=== PATIENT | male | born 1950 | race Caucasian/White ===

== ENCOUNTER 2024-04-25 10:42 | Outpatient (CLI) | payer MEDICARE, SELFPAY ==
[2024-04-25 11:03] LABS: Basophils Absolute Auto 0.06 K/mm3 (0.00-0.10); Basophils Percent Auto 0.8 % (0.0-1.0); Eosinophils Absolute Auto 0.24 K/mm3 (0.02-0.50); Eosinophils Percent Auto 3.3 % (1.0-6.0); Hematocrit 41.6 % (37.0-46.0); Hemoglobin 13.6 g/dL (12.4-15.3); Immature Granulocyte Absolute 0.02 K/mm3 (0.00-0.00); Immature Granulocyte Percent A 0.3 % (0.0-0.0); Lymphocytes Absolute Auto 1.14 K/mm3 (1.10-4.50); Lymphocytes Percent Auto 15.8 % (18.0-42.0); Mean Corpuscular HGB Conc 32.7 g/dL (32-36); Mean Corpuscular Hemoglobin 28.9 pg (27.0-31.0); Mean Corpuscular Volume 88.5 fL (78.0-102.0); Mean Platelet Volume 9.6 fl (8.7-11.0); Monocytes Absolute Auto 0.77 K/mm3 (0.10-0.90); Monocytes Percent Auto 10.7 % (2.0-11.0); Neutrophils Absolute Auto 4.97 K/mm3 (1.70-7.20); Neutrophils Percent Auto 69.1 % (50.0-70.0); Platelet Count Result 252 K/mm3 (150-420); Red Cell Distribution Width 13.1 % (11.6-14.4); White Blood Count 7.2 K/mm3 (4.8-10.8)
[2024-04-25 11:25] LABS: Alanine Aminotransferase 35 U/L (16-63); Albumin Level 3.9 g/dL (3.4-5.0); Alkaline Phosphatase 104 U/L (46-116); Ammonia 75 umol/L (11-32); Anion Gap 11 mmol/L (4-12); Aspartate Amino Transferase 21 U/L (15-37); Bilirubin,Total 0.4 mg/dL (0.00-1.00); Blood Urea Nitrogen 42 mg/dL (7-18); Carbon Dioxide 28 mmol/L (21-32); Chloride 102 mmol/L (98-108); Estimated Glomerular Filt Rate > 60; Glucose 105 mg/dL (70-99); Osmolality Calculated 302 mOsm/kg (285-295); Potassium 3.4 mmol/L (3.5-5.1); Sodium 141 mmol/L (136-145); Total Protein 7.8 g/dL (6.4-8.2)
== END 2024-04-25 10:43 | disposition home or self-care (01) ==
LOC: CHSLAB 10:44
PROVIDERS: PCP Family Medicine; Visit Provider Family Medicine
DX: K74.60 Unspecified cirrhosis of liver (principal)
CPT/HCPCS: 36415; 80053; 82140; 85025

== ENCOUNTER 2024-05-01 08:54 | Outpatient (CLI) | payer MEDICARE, SELFPAY ==
--- NOTE | ~2024-05-01 | MR_ITS ---
EXAMINATION: MR brain IAC wo con DATE: 05/01/2024 09:50 INDICATION: Headache, unspecified. TECHNIQUE: Magnetic resonance imaging (MRI) of the brain, brainstem, and internal auditory canals was performed without intravenous contrast. COMPARISON: None. FINDINGS: There are scattered areas of nonspecific increased T2-weighted signal intensity in the cere bral white matter and saloni. There is no intracranial hemorrhage, acute infarction, or abnormal intrac ranial mass lesion. The ventricles are normal in size. The internal auditory canals, inner ears, tymp anic cavities, and mastoid air cells are normal. The orbits are normal. There is mucosal thickening i n the paranasal sinuses. IMPRESSION: 1. Extensive nonspecific cerebral white matter disease and pontine disease, which likely represents c hronic small vessel ischemic disease. Reviewed, dictated and finalized at location A. IMPRESSION: 1. Extensive nonspecific cerebral white matter disease and pontine disease, whi ch likely represents chronic small vessel ischemic disease.
== END 2024-05-01 08:55 | disposition home or self-care (01) ==
LOC: CHSIMG 08:57
PROVIDERS: PCP Family Medicine; Visit Provider Family Medicine
DX: G89.29 Other chronic pain (principal); R51.9 Headache, unspecified; R90.82 White matter disease, unspecified
CPT/HCPCS: 70551

== ENCOUNTER 2024-06-18 15:36 | Outpatient (CLI) | payer MEDICARE, SELFPAY ==
--- NOTE | ~2024-06-18 | XR_ITS ---
[id number] 06/18/2024 16:09 Indication: Right knee pain Procedure: 2 views right knee Comparison: No prior studies for comparison. Findings: There is near complete loss of joint space in the medial compartment. There is a moderate j oint effusion. No acute fracture or traumatic malalignment. There is mild patellofemoral compartment osteoarthritis. Impression: 1: Advanced osteoarthritis of the right knee, most severe in the medial compartment. Reviewed, dictated and finalized at location B. Impression: 1: Advanced osteoarthritis of the right knee, most severe in the medial compart ment.
[2024-06-18 16:17] LABS: Alanine Aminotransferase 161 U/L (16-63); Albumin Level 2.6 g/dL (3.4-5.0); Alkaline Phosphatase 189 U/L (46-116); Anion Gap 8 mmol/L (4-12); Aspartate Amino Transferase 67 U/L (15-37); Blood Urea Nitrogen 32 mg/dL (7-18); Calcium 9.1 mg/dL (8.5-10.1); Carbon Dioxide 30 mmol/L (21-32); Chloride 96 mmol/L (98-108); Estimated Glomerular Filt Rate 33; Glucose 118 mg/dL (70-99); Osmolality Calculated 285 mOsm/kg (285-295); Sodium 134 mmol/L (136-145); Total Protein 6.8 g/dL (6.4-8.2); Uric Acid 3.8 mg/dL (3.5-7.2)
[2024-06-18 16:18] LABS: Ammonia < 10 umol/L (11-32)
== END 2024-06-18 15:37 | disposition home or self-care (01) ==
LOC: CHSLAB 15:40
PROVIDERS: PCP Nurse Practitioner Family; Visit Provider Nurse Practitioner Family
DX: M25.461 Effusion, right knee (principal); M25.561 Pain in right knee; M17.11 Unilateral primary osteoarthritis, right knee
CPT/HCPCS: 36415; 73560; 80053; 82140; 84550

== ENCOUNTER 2024-06-19 08:38 | Outpatient (CLI) | payer MEDICARE, SELFPAY ==
--- NOTE | ~2024-06-19 | US_ITS ---
Anteriorly ULTRASOUND Ordering provider: Edil Rocha APRN History: . M25.461 - Effusion, right knee . Comparison: None. FINDINGS/impression: Fluid is seen around the knee most likely in the suprapatellar bursa.. Reviewed, dictated and finalized at location A.
== END 2024-06-19 08:39 | disposition home or self-care (01) ==
LOC: CHSIMG 08:42
PROVIDERS: PCP Family Medicine; Visit Provider Nurse Practitioner Family
DX: M25.461 Effusion, right knee (principal)
CPT/HCPCS: 76882

== ENCOUNTER 2024-06-27 12:58 | Outpatient (NON) | payer MEDICARE, SELFPAY ==
[2024-06-27 13:53] LABS: Appearance Synovial Fluid Cloudy (Clear); Color Synovial Fluid Yellow (Colorless); Source Synovial Fluid Rt Knee Syn Fluid
[2024-06-27 13:54] LABS: Lymphocytes Synovial Fluid 3 %; Monocytes Synovial Fluid 1 %; Neutrophils Synovial Fluid 96 % (0-25); Nucleated Cell Synovial Fluid 48917 /uL (0-200); RBC Synovial Fluid 4000 /uL (0-0)
== END 2024-06-27 12:59 | disposition home or self-care (01) ==
PROVIDERS: PCP Family Medicine; Visit Provider Family Medicine
DX: M25.461 Effusion, right knee (principal)
CPT/HCPCS: 82365; 89051; 89060

== ENCOUNTER 2024-07-16 13:38 | Outpatient (CLI) | payer MEDICARE, SELFPAY ==
--- NOTE | ~2024-07-16 | US_ITS ---
RIGHT LOWER EXTREMITY VENOUS ULTRASOUND Ordering provider: Lake Bhatti DO History: . I82.409 - Acute embolism and thrombosis of unspecified de... . Comparison: None. FINDINGS: --COMMON FEMORAL: Patent and free of thrombus. Normal compressibility, phasic flow and augmentation. --PROXIMAL SUPERFICIAL FEMORAL: Patent and free of thrombus. Normal compressibility, phasic flow and augmentation. --DISTAL SUPERFICIAL FEMORAL: Patent and free of thrombus. Normal compressibility, phasic flow and au gmentation. --POPLITEAL: Patent and free of thrombus. Normal compressibility, phasic flow and augmentation. --POSTERIOR TIBIAL: Patent and free of thrombus. Normal compressibility, phasic flow and augmentation . Motley's cyst is seen in the popliteal fossa measuring 3.4 x 4.8 x 1 cm. IMPRESSION: Negative right lower extremity venous US. No deep vein thrombosis. Motley's cyst in the popliteal fossa. Reviewed, dictated and finalized at location A. 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
== END 2024-07-16 13:39 | disposition home or self-care (01) ==
LOC: CHSIMG 13:39
PROVIDERS: PCP Family Medicine; Visit Provider Family Medicine
DX: I82.401 Acute embolism and thrombosis of unspecified deep veins of right lower extremity (principal); M71.21 Synovial cyst of popliteal space [Baker], right knee
CPT/HCPCS: 93971

== ENCOUNTER 2025-05-15 11:15 | Outpatient (CLI) | payer OTHER, MEDICARE, SELFPAY ==
--- OUTSIDE RECORDS SUMMARY | 2025-05-15 11:36 | XMS_ITS | Clinical Summary ---
Author Organization [facility] Address [address] [place] [address] Care Team Providers Care Pet Ambassador Name Role Phone Lake Bhatit DO Primary Care Provider [phone] Allergies Active Allergy Reactions Criticality Noted Date Comments Sulfa Antibiotics Unknown 06/24/2024 Medications LORazepam (ATIVAN) 0.5 MG tablet Take 1 tablet (0.5 mg total) by mouth daily as needed. 4 Active morphine CR (MS CONTIN) 30 MG tablet Take 1 tablet (30 mg total) by mouth 2 (two) times daily. 4 Active oxyCODONE immediate release (ROXICODONE) 5 MG immediate release tablet Take 1 tablet (5 mg total) by mouth every 4 (four) hours as needed. 4 Active allopurinol (ZYLOPRIM) 300 MG tablet Take 1 tablet (300 mg total) by mouth daily. Active fluvoxaMINE (LUVOX) 100 MG tablet Take 1.5 tablets (150 mg total) by mouth 2 (two) times daily. Active entecavir (BARACLUDE) 0.5 MG tablet Take 1 tablet (0.5 mg total) by mouth daily. ON an EMPTY STOMACH. Active mometasone (ELOCON) 0.1 % ointment Apply topically daily. Active amLODIPine (NORVASC) 10 MG tablet Take 1 tablet (10 mg total) by mouth daily. Active benazepril (LOTENSIN) 20 MG tablet Take 2 tablets (40 mg total) by mouth daily. Active clobetasol (TEMOVATE) 0.05 % external solution Apply topically 2 (two) times daily. Active QUEtiapine XR (SEROQUEL XR) 50 MG 24 hr tablet Take 1 tablet (50 mg total) by mouth daily. Active lactulose (CHRONULAC) 10 GM/15ML solution Take 30 mLs (20 g total) by mouth daily. Active Family History Medical History Relation Comments Diabetes Father Heart Disease Father Hypertension Father Hypertension Mother Relation Status Comments Father Mother Social History Tobacco Use Types Packs/Day Years Used Date Smoking Tobacco: Never Smokeless Tobacco: Never Tobacco Cessation:Counseling Given: Not Answered Alcohol Use Standard Drinks/Week Comments Never 0 (1 standard drink = 0.6 oz pur e alcohol) Sex and Gender Information Value Date Recorded Sex Assigned at Not on file Legal Sex Male 10:23 AM CDT Gender Identity Not on file Sexual Orientation Not on file Last Filed Vital Signs Vital Sign Reading Time Taken Comments Blood Pressure 118/74 06/24/2024 11:40 AM CDT Pulse 68 06/24/2024 11:40 AM CDT Temperature 36.6 C (97.8 F) 06/24/2024 10:39 AM CDT Respiratory Rate 16 06/24/2024 11:40 AM CDT Oxygen Saturation 100% 06/24/2024 11:40 AM CDT Inhaled Oxygen Concentration - - Weight 76.2 kg (168 lb) 06/24/2024 10:39 AM CDT Height 170.2 cm (5' 7) 06/24/2024 10:39 AM CDT Body Mass Index 26.31 06/24/2024 10:39 AM CDT Plan of Treatment Health Maintenance Due Date Last Done Comments Colorectal Cancer Screening Colonoscopy (10 Years) 1950 Hepatitis C 1970 Zoster Vaccines (1 of 2) 2002 Pneumococcal Vaccine: 50+ Ye ars (2 of 2 - PCV) 10/14/2016 10/14/2015 Annual Medicare Wellness Visit 2017 COVID-19 Vaccine ( - 2023-2 5 season) 2024 DTaP, Tdap and Td Vaccines ( 2 - Td or Tdap) 08/18/2026 08/18/2016 RSV Immunization or 60+ Years (1 - 1-dose 75+ series) 2027 Meningococcal B Vaccine Aged Out No l onger eligible based on patient's age to complete this topic Meningococcal Vaccine Aged Out No regina neelima eligible based on patient's age to complete this topic RSV Immunizations Under 20 Months Aged Out No longer eligible based on patient's age to complete this topic Insurance MEDICARE [facility] Care Teams Pet Ambassador Relationship Specialty Start Date End Date Lake Bhatti DO [address] [place] [address] PCP - General FAMILY PRACTICE 06/24/24
[2025-05-15 11:51] LABS: Ammonia < 9 umol/L (9-30)
[2025-05-15 11:53] LABS: Hemoglobin A1C 5.5 % (<5.7)
[2025-05-15 12:02] LABS: Iron 33 ug/dL (49-181)
[2025-05-15 12:12] LABS: Percent Iron Saturation 8 % (20-50)
[2025-05-15 12:35] LABS: Thyroid Stimulating Hormone Reflex 6.330 uIU/mL (0.465-4.68)
[2025-05-15 12:59] LABS: Sodium 141 mmol/L (137-145)
[2025-05-15 13:00] LABS: Alanine Aminotransferase 22 U/L (6-50); Albumin Level 4.3 g/dL (3.5-5.1); Anion Gap 8 mmol/L (4-12); Aspartate Amino Transferase 34 U/L (17-59); Bilirubin,Total 0.7 mg/dL (0.2-1.3); Blood Urea Nitrogen 19 mg/dL (9-20); Calcium 9.8 mg/dL (8.4-10.2); Carbon Dioxide 27 mmol/L (22-30); Chloride 106 mmol/L (98-107); Estimated Glomerular Filt Rate 56; Ferritin 5.70 ng/mL (11.1-264); Glucose 102 mg/dL (65-110); Osmolality Calculated 294 mOsm/kg (285-295); Potassium 4.8 mmol/L (3.4-5.0); Total Protein 7.1 g/dL (6.3-8.2)
[2025-05-15 13:01] LABS: Alkaline Phosphatase 57 U/L (38-126); Free T4 Free Thyroxine Reflex 1.03 ng/dL (0.78-2.19); Vitamin B12 922.0 pg/mL (239-931)
[2025-05-16 16:59] LABS: Hematocrit 29.5 % (37.0-46.0); Hemoglobin 7.7 g/dL (12.4-15.3); Immature Granulocyte Percent A 0.3 % (0.0-0.0); Lymphocytes Absolute Auto 1.38 K/mm3 (1.10-4.50); Mean Corpuscular HGB Conc 26.1 g/dL (32-36); Mean Corpuscular Hemoglobin 19.6 pg (27.0-31.0); Mean Corpuscular Volume 75.3 fL (78.0-102.0); Nucleated Red Blood Cells Absolute Auto 0.03 K/mm3 (0.00-0.00); Nucleated Red Blood Cells Perc 0.5 % (0-0.0); Platelet Count Result 286 K/mm3 (150-420); Red Blood Count 3.92 M/mm3 (4.70-6.10); White Blood Count 6.7 K/mm3 (4.8-10.8)
== END 2025-05-15 11:16 | disposition home or self-care (01) ==
LOC: CHSLAB 11:17
PROVIDERS: PCP Family Medicine; Visit Provider Family Medicine
DX: D50.9 Iron deficiency anemia, unspecified (principal); R53.83 Other fatigue; E03.9 Hypothyroidism, unspecified; D64.9 Anemia, unspecified; E53.8 Deficiency of other specified B group vitamins; K74.60 Unspecified cirrhosis of liver; E11.9 Type 2 diabetes mellitus without complications
CPT/HCPCS: 36415; 80053; 82140; 82607; 82728; 82746; 83036; 83540; 83550; 84439; 84443; 85025

== ENCOUNTER 2025-08-27 14:53 | Outpatient (CLI) | payer MEDICARE, SELFPAY ==
--- NOTE | ~2025-08-27 | XR_ITS ---
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 Technique: 2 views obtained. Findings: The lungs are clear, no effusion. No pneumothorax. Heart is normal size. Mediastinal and hilar contours are within normal limits. Bony thorax no acute abnormality. Impression: No acute cardiopulmonary abnormality. Reviewed, dictated and finalized at location P. 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
[2025-08-27 15:15] LABS: Hematocrit 44.7 % (37.0-46.0); Hemoglobin 14.1 g/dL (12.4-15.3); Immature Granulocyte Percent A 0.3 % (0.0-0.0); Lymphocytes Absolute Auto 1.71 K/mm3 (1.10-4.50); Mean Corpuscular HGB Conc 31.5 g/dL (32-36); Mean Corpuscular Hemoglobin 26.4 pg (27.0-31.0); Mean Corpuscular Volume 83.7 fL (78.0-102.0); Nucleated Red Blood Cells Absolute Auto 0.00 K/mm3 (0.00-0.00); Nucleated Red Blood Cells Perc 0.0 % (0-0.0); Platelet Count Result 272 K/mm3 (150-420); Red Blood Count 5.34 M/mm3 (4.70-6.10); White Blood Count 9.4 K/mm3 (4.8-10.8)
[2025-08-27 15:33] LABS: Alanine Aminotransferase 37 U/L (6-50); Albumin Level 4.7 g/dL (3.5-5.1); Alkaline Phosphatase 85 U/L (38-126); Anion Gap 11 mmol/L (4-12); Aspartate Amino Transferase 40 U/L (17-59); Bilirubin,Total 0.5 mg/dL (0.2-1.3); Blood Urea Nitrogen 12 mg/dL (9-20); Calcium 9.6 mg/dL (8.4-10.2); Carbon Dioxide 24 mmol/L (22-30); Chloride 108 mmol/L (98-107); Estimated Glomerular Filt Rate > 60; Glucose 106 mg/dL (65-110); Osmolality Calculated 295 mOsm/kg (285-295); Potassium 3.7 mmol/L (3.4-5.0); Sodium 143 mmol/L (137-145); Total Protein 7.6 g/dL (6.3-8.2); Uric Acid 3.7 mg/dL (3.5-8.5)
[2025-08-27 15:42] LABS: NT Pro B Type Natriuretic Pept 259 pg/mL (19.9-100)
== END 2025-08-27 14:54 | disposition home or self-care (01) ==
PROVIDERS: PCP Family Medicine; Visit Provider Family Medicine
DX: M10.9 Gout, unspecified (principal); K74.60 Unspecified cirrhosis of liver; R06.09 Other forms of dyspnea
CPT/HCPCS: 36415; 71046; 80053; 83880; 84550; 85025